=== PATIENT | male | born 1985 | race Two or more races ===

== ENCOUNTER 2023-09-09 08:10 | Emergency (ER) | payer OTHER ==
[~2023-09-09] VITALS: Ht 170.2 cm; Wt 100.8 kg
[2023-09-09 08:30] VITALS: BP 131/84; PULSE 88; RESP 18; TEMP 97.9; O2SAT 99
[2023-09-09] MEDS ORDERED: KETOROLAC TROMETH 30 MG/ML 1ML VIAL IM ONE (08:45)
[2023-09-09] MEDS ORDERED: CYCL-837 PO (09:26)
[2023-09-09] MEDS ORDERED: NABU-72 PO (09:26)
== END 2023-09-09 09:31 | disposition home or self-care (01) ==
LOC: ER 08:10
DX: M54.50 Low back pain, unspecified (principal); E78.5 Hyperlipidemia, unspecified; F17.210 Nicotine dependence, cigarettes, uncomplicated; Z79.899 Other long term (current) drug therapy
CPT/HCPCS: 72100; 96372; 99283; J1885

== ENCOUNTER 2023-09-12 17:00 | Emergency (ER) | payer OTHER ==
[~2023-09-12] VITALS: Ht 170.2 cm; Wt 100.0 kg
[~2023-09-12 17:00] MED LIST: CYCL-837 PO; NABU-72 PO
[2023-09-12] MEDS ORDERED: HYDR-4902 PO (21:59)
[2023-09-12 22:00] VITALS: BP 136/92; PULSE 76; RESP 16; TEMP 97.6; O2SAT 98
[2023-09-12] MEDS ORDERED: DexAMETHasone SOD PHOS 10MG/1ML VIAL INJ IM ONE (22:00)
[2023-09-12] MEDS ORDERED: KETOROLAC TROMETH 60MG/2ML VIAL IM ONE (22:00)
[2023-09-12] MEDS ORDERED: HYDROcodone-ACET 5/325MG TAB PO ONE (22:00)
[2023-09-12] MEDS ORDERED: KETOROLAC TROMETH 60MG/2ML VIAL ONE (22:07)
[2023-09-12] MEDS ORDERED: HYDROcodone-ACET 5/325MG TAB ONE (22:08)
[2023-09-12] MEDS ORDERED: DexAMETHasone SOD PHOS 10MG/1ML VIAL INJ ONE (22:09)
== END 2023-09-12 22:09 | disposition home or self-care (01) ==
LOC: ER 17:00
DX: S29.011A Strain of muscle and tendon of front wall of thorax, initial encounter (principal); S29.012A Strain of muscle and tendon of back wall of thorax, initial encounter; R59.0 Localized enlarged lymph nodes; E04.1 Nontoxic single thyroid nodule; V43.52XA Car driver injured in collision with other type car in traffic accident, initial encounter; Y93.89 Activity, other specified; Y92.488 Other paved roadways as the place of occurrence of the external cause; Y99.8 Other external cause status
CPT/HCPCS: 71101; 71250; 96372; 99285; J1100; J1885